=== PATIENT | male | born 1970 | race Caucasian/White ===

== ENCOUNTER 2017-07-30 15:07 | Emergency (ER) | payer OTHER ==
[2017-07-30 15:28] VITALS: BMI 30.8
[2017-07-30 15:30] VITALS: TEMP 98.4
[2017-07-30 15:40] VITALS: BP 126/69; PULSE 80; RESP 16; O2SAT 97
--- NOTE | 2017-07-30 15:42 | ED PDOC ---
Arrival/HPI - General Chief Complaint: Abnormal Skin Integrity Time Seen by Provider: 07/30/17 15:30 Historian: Patient - History of Present Illness Narrative History of Present Illness (Text): 07/30/17 15:30 47 y/o male, no significant pmh, nkda, c/o lt. flank rash x 2 days. Pt. stated that he has a painful lump on the lt. flank region x 2 days, no fever or chills, no night sweat, no vesicular lesion, no palpitation, no other medical or psychological complaints. Past Medical History - Provider Review Nursing Documentation Reviewed: Yes - Infectious Disease Hx of Infectious Diseases: None Family/Social History - Physician Review Nursing Documentation Reviewed: Yes Family/Social History: Unknown Family HX Allergies/Home Meds Allergies/Adverse Reactions: Allergies No Known Allergies Allergy (Verified 07/30/17 15:42) Review of Systems - Review of Systems Constitutional: absent: Fatigue, Fevers Eyes: absent: Vision Changes ENT: absent: Hearing Changes Respiratory: absent: SOB, Cough Cardiovascular: absent: Chest Pain Gastrointestinal: absent: Abdominal Pain, Nausea, Vomiting Skin: Skin Lesions. absent: Rash, Pruritis, Laceration, Abscess, Ulcer, Cellulitis Neurological: absent: Headache, Dizziness Psychiatric: absent: Anxiety, Depression Physical Exam Vital Signs Reviewed: Yes Vital Signs Temp Pulse Resp BP Pulse Ox 07/30/17 15:08 98.4 F 82 18 119/76 96 Temperature: Afebrile Blood Pressure: Normal Pulse: Regular Respiratory Rate: Normal Appearance: Positive for: Well-Appearing, Non-Toxic, Comfortable Pain Distress: Mild Mental Status: Positive for: Alert and Oriented X 3 - Systems Exam Head: Present: Atraumatic, Normocephalic Pupils: Present: PERRL Extroacular Muscles: Present: EOMI Conjunctiva: Present: Normal Mouth: Present: Moist Mucous Membranes Neck: Present: Normal Range of Motion Respiratory/Chest: Present: Clear to Auscultation, Good Air Exchange. No: Respiratory Distress, Accessory Muscle Use Cardiovascular: Present: Regular Rate and Rhythm, Normal S1, S2. No: Murmurs Abdomen: No: Tenderness, Distention, Peritoneal Signs Back: Present: Normal Inspection Upper Extremity: Present: Normal Inspection. No: Cyanosis, Edema Lower Extremity: Present: Normal Inspection. No: Edema Neurological: Present: GCS=15, Speech Normal, Motor Func Grossly Intact, Gait Normal, Memory Normal Skin: Present: Warm, Dry, Rashes (Lt. flank region visible furuncle with firm cystic lesion approx. 1cm diameter with no streaking or ulcers, no bullseye or target signs. ), Normal Color Psychiatric: Present: Alert, Oriented x 3, Normal Insight, Normal Concentration Medical Decision Making ED Course and Treatment: 07/30/17 15:43 -Sensation intact, motor 5/5, wound clean with saline and betadine, alcohol prep , sterile procedure #11 blade made 0.5cm incision with cyst removed completely, swelling resolved, 1/4" iodofoam packing inserted, hemostasis obtained, gauze dressing, sensation intact, motor 5/5, total procedure time 15 minutes. -Discharge home with keflex/bactrim, motrin, heat compress, return to the ER if there is any worsening or swelling in 2 days and dressing change, follow up with your own pmd and nuclear instructor within 2 days, return to the ER for any new or worsening signs or symptoms. - PA / [employer] / Resident Statement / has reviewed & agrees with the documentation as recorded. Disposition/Present on Arrival - Present on Arrival Any Indicators Present on Arrival: No History of DVT/PE: No History of Uncontrolled Diabetes: No Urinary Catheter: No History of Decub. Ulcer: No History Surgical Site Infection Following: None - Disposition Have Diagnosis and Disposition been Completed?: Yes Diagnosis: Furuncle, Cyst Disposition: HOME/ ROUTINE Disposition Time: 15:45 Patient Plan: Discharge Condition: GOOD Additional Instructions: -Discharge home with keflex/bactrim, motrin, heat compress, return to the ER if there is any worsening or swelling in 2 days with dressing change, follow up with your own pmd and nuclear instructor within 2 days, return to the ER for any new or worsening signs or symptoms. Prescriptions: Cephalexin [cephalexin] 500 mg PO QID #40 cap Ibuprofen [Motrin] 600 mg PO QID PRN #30 tab PRN Reason: Other Sulfamethoxazole/Trimethoprim [Bactrim Ds Tablet] 1 each PO BID #20 tablet Referrals: Cristiano Banuelos MD [Staff Provider] - Follow up with primary Maxim Webb MD [Staff Provider] - Follow up with primary Forms: WORK NOTE
== END 2017-07-30 16:21 | disposition home or self-care (01) ==
LOC: ED 15:07
DX: L02.222 Furuncle of back [any part, except buttock and flank] (principal); L72.9 Follicular cyst of the skin and subcutaneous tissue, unspecified

== ENCOUNTER 2017-08-01 20:20 | Emergency (ER) | payer OTHER ==
[2017-08-01 20:22] VITALS: BMI 30.8
[2017-08-01 21:58] VITALS: BP 117/71; PULSE 68; RESP 18; TEMP 97.7; O2SAT 96
--- NOTE | 2017-08-01 22:10 | ED PDOC ---
Arrival/HPI - General Chief Complaint: Abnormal Skin Integrity Time Seen by Provider: 08/01/17 22:06 Historian: Patient - History of Present Illness Narrative History of Present Illness (Text): 08/01/17 22:06 47yo male who present to ED for packing removal. He states he was seen here 2days ago and I & D was done. States he was advised to return to ED today for packing removal and came to ED for it. He states he is currently taking the antibiotic he was prescribed. Denies pain to the area. Denies fever. Past Medical History - Provider Review Nursing Documentation Reviewed: Yes - Infectious Disease Hx of Infectious Diseases: None - Psychiatric Hx Substance Use: No - Surgical History Hx Eye Surgery: Yes Family/Social History - Physician Review Nursing Documentation Reviewed: Yes Family/Social History: Unknown Family HX Smoking Status: Never Smoked Hx Alcohol Use: No Hx Substance Use: No Allergies/Home Meds Allergies/Adverse Reactions: Allergies No Known Allergies Allergy (Verified 08/01/17 21:48) Home Medications: Home Meds Medication Instructions Recorded Confirmed No Known Home Med 08/01/17 08/01/17 Review of Systems - Physician Review All systems were reviewed & negative as marked: Yes - Review of Systems Constitutional: Normal Eyes: Normal ENT: Normal Respiratory: Normal Cardiovascular: Normal Gastrointestinal: Normal Genitourinary Male: Normal Musculoskeletal: Normal Skin: Other (wound check) Neurological: Normal Endocrine: Normal Hemo/Lymphatic: Normal Psychiatric: Normal Physical Exam Vital Signs Reviewed: Yes Vital Signs Temp Pulse Resp BP Pulse Ox 08/01/17 21:54 97.7 F 68 18 117/71 96 Temperature: Afebrile Blood Pressure: Normal Pulse: Regular Respiratory Rate: Normal Appearance: Positive for: Well-Appearing, Non-Toxic, Comfortable Pain Distress: None Mental Status: Positive for: Alert and Oriented X 3 - Systems Exam Head: Present: Atraumatic, Normocephalic Pupils: Present: PERRL Extroacular Muscles: Present: EOMI Conjunctiva: Present: Normal Mouth: Present: Moist Mucous Membranes Neck: Present: Normal Range of Motion Respiratory/Chest: Present: Clear to Auscultation, Good Air Exchange. No: Respiratory Distress, Accessory Muscle Use Cardiovascular: Present: Regular Rate and Rhythm, Normal S1, S2. No: Murmurs Abdomen: No: Tenderness, Distention, Peritoneal Signs Back: Present: Normal Inspection Upper Extremity: Present: Normal Inspection. No: Cyanosis, Edema Lower Extremity: Present: Normal Inspection. No: Edema Neurological: Present: GCS=15, CN II-XII Intact, Speech Normal Skin: Present: Warm, Dry, Normal Color, Other (Dressing noted in place to left flank). No: Rashes Psychiatric: Present: Alert, Oriented x 3, Normal Insight, Normal Concentration Medical Decision Making ED Course and Treatment: 08/01/17 22:08 Packing was removed. No discharge. no induration. Dressed placed. PT advised to continue with his antibiotics as was advised. Disposition/Present on Arrival - Present on Arrival Any Indicators Present on Arrival: No History of DVT/PE: No History of Uncontrolled Diabetes: No Urinary Catheter: No History of Decub. Ulcer: No History Surgical Site Infection Following: None - Disposition Have Diagnosis and Disposition been Completed?: Yes Diagnosis: Visit for wound check Disposition: HOME/ ROUTINE Disposition Time: 22:15 Patient Plan: Discharge Condition: STABLE Discharge Instructions (ExitCare): Wound Care Additional Instructions: Follow up with your doctor Return to ED for any new symptoms Referrals: Asmita Guerin MD [Primary Care Provider] - Follow up with primary
== END 2017-08-01 23:07 | disposition home or self-care (01) ==
LOC: ED 20:20
DX: Z48.00 Encounter for change or removal of nonsurgical wound dressing (principal); Z51.89 Encounter for other specified aftercare